=== PATIENT | female | born 1950 | race Caucasian/White ===

== ENCOUNTER 2016-08-05 13:06 | Emergency (ER) | payer MEDICARE ==
[~2016-08-05] VITALS: Ht 172.7 cm; Wt 74.0 kg
[~2016-08-05 13:06] MED LIST: ALBU8.5H3 INH; BENZ200C40 PO; COD1CAPS2 PO; ENAL5TAB; ENAL5TAB PO; FLUT9.9S IH; GARL1CAP3 PO; IBUP200C; LEVO500T33 PO; MECL12.5 PO; OMEP-110 PO; PRED10TA14 PO; PSEU120T9 PO; SYMBICORT; TIOT18CA INH; TOLT1TAB14; TOLT4CAP PO
[2016-08-05] MEDS ORDERED: SODIUM CHLORIDE 0.9% 1,000 ML IV ONE (13:15)
[2016-08-05] MEDS ORDERED: PLEASE ENTER HEIGHT AND WEIGHT MC SCH (13:30)
[2016-08-05] MEDS ORDERED: SODIUM CHLORIDE 0.9% 1,000ML IVBOLUS ONE (13:30)
[2016-08-05] MEDS ORDERED: MORPHINE SULFATE 4 MG/ML, 1ML IVPush PRN (13:30)
[2016-08-05] MEDS ORDERED: ONDANSETRON 2MG/ML, 2ML IVPush ONE (13:30)
[2016-08-05 13:59] LABS: BLOOD UREA NITROGEN 11 mg/dL (7-18)
[2016-08-05 14:03] LABS: IS PT STATUS REG ER OR PRE ER? YES
[2016-08-05 14:51] VITALS: BP 151/76
== END 2016-08-05 15:01 | disposition home or self-care (01) ==
LOC: ED 14:55
DX: R07.2 Precordial pain (principal); I10 Essential (primary) hypertension; Z88.0 Allergy status to penicillin; Z88.2 Allergy status to sulfonamides; Z88.8 Allergy status to other drugs, medicaments and biological substances
CPT/HCPCS: 36415; 70450; 71010; 80048; 82040; 84484; 85025; 93005

== ENCOUNTER 2016-09-14 12:16 | Emergency (ER) | payer MEDICARE ==
[~2016-09-14] VITALS: Ht 170.2 cm; Wt 74.0 kg
[2016-09-14] MEDS ORDERED: SODIUM CHLORIDE FLUSH 10ML SYR IVF ONE (12:30)
[2016-09-14] MEDS ORDERED: ALBUTEROL/IPRATROPIUM 2.5MG/0.5MG, 3 ML NPPB ONE (12:30)
[2016-09-14 12:55] LABS: HEMOGLOBIN 14.5 g/dL (11.7-16.4); WHITE BLOOD COUNT 9.6 x10^3/uL (3.4-10)
[2016-09-14 13:04] LABS: BLOOD UREA NITROGEN 9 mg/dL (7-18)
[2016-09-14] MEDS ORDERED: ALBUTEROL/IPRATROPIUM 2.5MG/0.5MG, 3 ML ONE (13:04)
[2016-09-14 13:09] VITALS: BP 199/82
== END 2016-09-14 14:57 | disposition home or self-care (01) ==
LOC: ED 13:36
DX: J20.9 Acute bronchitis, unspecified (principal); R09.1 Pleurisy; I10 Essential (primary) hypertension; Z88.0 Allergy status to penicillin; Z88.5 Allergy status to narcotic agent; Z91.040 Latex allergy status; Z86.718 Personal history of other venous thrombosis and embolism
CPT/HCPCS: 36415; 71010; 80048; 82040; 83605; 85025; 93005; 99285

== ENCOUNTER 2017-06-06 10:48 | Emergency (ER) | payer MEDICARE, MEDICAID ==
[~2017-06-06] VITALS: Ht 174 cm; Wt 71.0 kg
[~2017-06-06 10:48] MED LIST changes: -ALBU8.5H3 INH; +ALBU8.5H8 INH; -BENZ200C40 PO; +BENZ200C48 PO; -IBUP200C; +IBUP200C5; -LEVO500T33 PO; +LEVO500T47 PO
[2017-06-06] MEDS ORDERED: ENAL5TAB PO (11:01)
[2017-06-06] MEDS ORDERED: ASPI325T17 PO (11:01)
[2017-06-06] MEDS ORDERED: MECLIZINE CHEWABLE 25 MG TAB PO ONE (11:30)
[2017-06-06] MEDS ORDERED: SODIUM CHLORIDE FLUSH 10ML SYR IVF ONE (11:30)
[2017-06-06] MEDS ORDERED: MECLIZINE CHEWABLE 25 MG TAB ONE (11:51)
[2017-06-06 11:55] VITALS: BP 142/87
[2017-06-06 12:00] LABS: BASOPHILS # (AUTO) 0.02 x10^3/uL (0-0.1); BASOPHILS % (AUTO) 0 % (0-1); EOSINOPHILS # (AUTO) 0.27 x10^3/uL (0-0.4); EOSINOPHILS % (AUTO) 3 % (1-7); LYMPHOCYTES # (AUTO) 2.05 x10^3/uL (1-3.4); LYMPHOCYTES % (AUTO) 24 % (22-44); MD NO; MEAN CORPUSCULAR HEMOGLOBIN 30.8 pg (27.0-34.8); MEAN CORPUSCULAR HGB CONC 34.2 g/dL (32.4-35.8); MEAN CORPUSCULAR VOLUME 90.3 fL (80-100); MONOCYTES # (AUTO) 0.53 x10^3/uL (0.2-0.8); MONOCYTES % (AUTO) 6 % (2-9); NEUTROPHILS # (AUTO) 5.75 x10^3/uL (1.8-6.8); NEUTROPHILS % (AUTO) 67 % (42-75); PLATELET COUNT 304 x10^3/uL (130-400); RED BLOOD COUNT 4.89 x10^6/uL (3.82-5.3); RED CELL DISTRIBUTION WIDTH 12.9 % (9.6-15.2)
[2017-06-06 12:05] LABS: INTERNATIONAL NORMALIZED RATIO 0.96 (0.93-1.1)
[2017-06-06 12:36] LABS: ALBUMIN 3.6 g/dL (3.4-5.0); ANION GAP 13 mmol/L (5-15); CALCIUM 8.7 mg/dL (8.5-10.1); CHLORIDE 108 mmol/L (98-107)
[2017-06-06 12:41] LABS: ALANINE AMINOTRANSFERASE 22 U/L (12-78); ALKALINE PHOSPHATASE 73 U/L (45-117); BILIRUBIN,TOTAL 0.7 mg/dL (0.2-1.0); CREATININE 0.92 mg/dL (0.55-1.02); TOTAL PROTEIN 7.3 g/dL (6.4-8.2); TROPONIN I < 0.015 ng/mL (0.000-0.045)
== END 2017-06-06 13:55 | disposition home or self-care (01) ==
LOC: ED 13:49
DX: R42 Dizziness and giddiness (principal); F17.210 Nicotine dependence, cigarettes, uncomplicated; I10 Essential (primary) hypertension; Z86.73 Personal history of transient ischemic attack (TIA), and cerebral infarction without residual deficits; J44.9 Chronic obstructive pulmonary disease, unspecified; R79.1 Abnormal coagulation profile
CPT/HCPCS: 36415; 71045; 80053; 84484; 85025; 85610; 85730; 93005; 99285

== ENCOUNTER 2017-08-20 14:57 | Emergency (ER) | payer MEDICARE, MEDICAID ==
[~2017-08-20] VITALS: Ht 172.7 cm; Wt 70.0 kg
[~2017-08-20 14:57] MED LIST changes: +ASPI325T17 PO
[2017-08-20] MEDS ORDERED: LIDOCAINE 2%, 10ML INFIL ONE (15:30)
[2017-08-20] MEDS ORDERED: PLEASE ENTER HEIGHT AND WEIGHT MC SCH (15:30)
[2017-08-20] MEDS ORDERED: LIDOCAINE-MPF 2% ,5ML ONE (16:28)
[2017-08-20] MEDS ORDERED: ONDANSETRON ODT 4 MG ONE (16:46)
[2017-08-20 16:48] VITALS: BP 164/83
[2017-08-20] MEDS ORDERED: ONDANSETRON ODT 4 MG PO ONE (17:00)
[2017-08-20] MEDS ORDERED: BACITRACIN ZINC OINT 500U/GM, 0.9 GM ONE (17:11)
== END 2017-08-20 18:39 | disposition home or self-care (01) ==
LOC: ED 15:45
DX: S01.81XA Laceration without foreign body of other part of head, initial encounter (principal); J44.9 Chronic obstructive pulmonary disease, unspecified; I10 Essential (primary) hypertension; Z88.6 Allergy status to analgesic agent; Z88.0 Allergy status to penicillin; Z91.040 Latex allergy status; W01.0XXA Fall on same level from slipping, tripping and stumbling without subsequent striking against object, initial encounter; Y93.01 Activity, walking, marching and hiking; Y99.8 Other external cause status; Y92.009 Unspecified place in unspecified non-institutional (private) residence as the place of occurrence of the external cause
CPT/HCPCS: 12052; 70450; 72072; 72125; 73030; 99284; Q0162

== ENCOUNTER 2017-08-25 12:12 | Emergency (ER) | payer MEDICARE, MEDICAID ==
[~2017-08-25] VITALS: Ht 172.7 cm; Wt 75.6 kg
[2017-08-25 12:16] VITALS: BP 145/94
== END 2017-08-25 13:13 | disposition home or self-care (01) ==
LOC: ED 12:51
DX: S01.81XD Laceration without foreign body of other part of head, subsequent encounter (principal); I10 Essential (primary) hypertension; J44.9 Chronic obstructive pulmonary disease, unspecified; Z86.718 Personal history of other venous thrombosis and embolism; X58.XXXD Exposure to other specified factors, subsequent encounter
CPT/HCPCS: 99282

== ENCOUNTER 2018-01-31 15:10 | Emergency (ER) | payer MEDICARE, MEDICAID ==
[~2018-01-31] VITALS: Ht 172.7 cm; Wt 75.0 kg
[~2018-01-31 15:10] MED LIST changes: +IBUP-1623; -IBUP200C5
[2018-01-31 15:15] VITALS: BP 159/99
== END 2018-01-31 16:28 ==
LOC: ED 16:14
DX: F41.1 Generalized anxiety disorder (principal); J44.9 Chronic obstructive pulmonary disease, unspecified; I10 Essential (primary) hypertension; Z86.718 Personal history of other venous thrombosis and embolism
CPT/HCPCS: 99284

== ENCOUNTER 2019-03-11 13:26 | Emergency (ER) | payer MEDICARE, MEDICAID ==
[~2019-03-11] VITALS: Ht 172.7 cm; Wt 72.0 kg
[~2019-03-11 13:26] MED LIST changes: -COD1CAPS2 PO; +COD1CAPS6 PO
[2019-03-11] MEDS ORDERED: SODIUM CHLORIDE FLUSH 10ML SYR IVF ONE (14:00)
[2019-03-11 14:10] LABS: BASOPHILS # (AUTO) 0.23 x10^3/uL (0-0.1); BASOPHILS % (AUTO) 2 % (0-1); EOSINOPHILS # (AUTO) 0.48 x10^3/uL (0-0.4); EOSINOPHILS % (AUTO) 4 % (1-7); LYMPHOCYTES # (AUTO) 2.81 x10^3/uL (1-3.4); LYMPHOCYTES % (AUTO) 23 % (22-44); MD NO; MEAN CORPUSCULAR HEMOGLOBIN 30.8 pg (27.0-34.8); MEAN CORPUSCULAR HGB CONC 33.5 g/dL (32.4-35.8); MEAN CORPUSCULAR VOLUME 91.9 fL (80-100); MONOCYTES # (AUTO) 0.75 x10^3/uL (0.2-0.8); MONOCYTES % (AUTO) 6 % (2-9); NEUTROPHILS # (AUTO) 7.72 x10^3/uL (1.8-6.8); NEUTROPHILS % (AUTO) 64 % (42-75); PLATELET COUNT 273 x10^3/uL (130-400); RED BLOOD COUNT 5.26 x10^6/uL (3.82-5.3); RED CELL DISTRIBUTION WIDTH 12.9 % (9.6-15.2)
[2019-03-11 14:12] LABS: INTERNATIONAL NORMALIZED RATIO 0.93 (0.93-1.1)
[2019-03-11 14:13] LABS: ALBUMIN 3.8 g/dL (3.4-5.0); ANION GAP 9 mmol/L (5-15); CHLORIDE 110 mmol/L (98-107); CREATININE 0.92 mg/dL (0.55-1.02)
[2019-03-11 14:16] LABS: PROTHROMBIN TIME 9.9 Seconds (9.6-11.5); TROPONIN I < 0.015 ng/mL (0.000-0.045)
[2019-03-11 14:20] VITALS: BP 169/105
--- NOTE | 2019-03-11 14:20 | NUR ---
BREAK RN: PT RESTING IN ROOM. REGULAR RESP. NO ACUTE DISTRESS NOTED. CALL LIGHT IN PLACE. WILL CONTINUE TO MONITOR WHILE PRIMARY RN IS ON BREAK.
--- NOTE | 2019-03-11 15:30 | NUR ---
AMBULATED TO BATHROOM WITHOUT ASSISTANCE, STEADY GAIT. NO CP AT THIS TIME
== END 2019-03-11 15:54 | disposition home or self-care (01) ==
LOC: ED 15:35
DX: R07.89 Other chest pain (principal); I73.9 Peripheral vascular disease, unspecified; I10 Essential (primary) hypertension; D68.9 Coagulation defect, unspecified; J44.9 Chronic obstructive pulmonary disease, unspecified; R01.1 Cardiac murmur, unspecified; F17.200 Nicotine dependence, unspecified, uncomplicated; Z86.718 Personal history of other venous thrombosis and embolism; Z79.82 Long term (current) use of aspirin
CPT/HCPCS: 36415; 71045; 80048; 82040; 83880; 84484; 85025; 85610; 85730; 93005; 99284

== ENCOUNTER 2019-05-19 18:16 | Emergency (ER) | payer MEDICARE, MEDICAID ==
[~2019-05-19] VITALS: Ht 172.7 cm; Wt 75.0 kg
--- NOTE | 2019-05-19 18:28 | NUR ---
PT WAS BIB [facility] FOR SOB. PT WAS 85% RM AIR WHEN EMS ARRIVED ON [facility]. AFTER PLACING PT ON 2 LITERS VIA NC SHE ALLYSON TO 95%. PT SAYS SHE HAS BEEN "FIGHTING A COUGH FOR 2 MONTHS. IWAS DX WITH A SINUS INFECTION A MONTH AGO AND WAS GIVEN ABX AND STEROIDS." PT IS 94% ON 2 LITERS. EKG COMPLETE.
[2019-05-19] MEDS ORDERED: ALBUTEROL SULFATE 2.5 MG/3 ML NPPB ONE (19:00)
[2019-05-19] MEDS ORDERED: ALBUTEROL/IPRATROPIUM 2.5MG/0.5MG, 3 ML ONE (19:05)
[2019-05-19 19:15] LABS: MEAN CORPUSCULAR HEMOGLOBIN 30.5 pg (27.0-34.8); MEAN CORPUSCULAR HGB CONC 34.2 g/dL (32.4-35.8); MEAN CORPUSCULAR VOLUME 89.3 fL (80-100); MEAN PLATELET VOLUME 8.7 fL (7.4-10.4); PLATELET COUNT 273 x10^3/uL (130-400); RED BLOOD COUNT 4.63 x10^6/uL (3.82-5.3); RED CELL DISTRIBUTION WIDTH 13.2 % (9.6-15.2)
[2019-05-19 19:17] VITALS: BP 138/82
--- NOTE | 2019-05-19 19:17 | NUR ---
PT RECEIVING BREATHING TREATMENT. TOLERATING WELL
[2019-05-19 19:23] LABS: ALANINE AMINOTRANSFERASE 40 U/L (12-78); ALBUMIN 3.3 g/dL (3.4-5.0); ANION GAP 7 mmol/L (5-15); CALCIUM 8.5 mg/dL (8.5-10.1); CHLORIDE 109 mmol/L (98-107); CREATININE 0.88 mg/dL (0.55-1.02)
[2019-05-19 19:27] LABS: ALKALINE PHOSPHATASE 110 U/L (45-117); MD YES; TOTAL PROTEIN 7.4 g/dL (6.4-8.2); TROPONIN I < 0.015 ng/mL (0.000-0.045)
[2019-05-19 19:37] LABS: <RBC MORPHOLOGY> NORMAL; BAND#(MANUAL) 0.19 x10^3/uL; BANDS%(MANUAL) 1 % (0-7); EOS#(MANUAL) 0.19 x10^3/uL (0.0-0.4); EOS% (MANUAL) 1 % (1-7); LYMPH#(MANUAL) 2.52 x10^3/uL (1-3.4); LYMPHS% (MANUAL) 13 % (22-44); MONOS#(MANUAL) 0.78 x10^3/uL (0.3-2.7); MONOS% (MANUAL) 4 % (2-9); SEG#(MANUAL) 15.71 x10^3/uL (1.8-6.8); SEGS% (MANUAL) 81 % (42-75)
[2019-05-19 19:38] LABS: <PLATELET ESTIMATE> ADEQUATE; <PLT MORPHOLOGY> NORMAL PLT MORPH
--- NOTE | 2019-05-19 20:14 | NUR ---
PROVIDER WANTS TO ADMIT PT. HOWEVER, PT DOES NOT WANT TO BE ADMITTED TO HOSPITAL. PT WILL LEAVE AMA. PT 85% ON ROOM AIR
== END 2019-05-19 20:51 | disposition left against medical advice (07) ==
LOC: ED 18:49
DX: J96.01 Acute respiratory failure with hypoxia (principal); R65.11 Systemic inflammatory response syndrome (SIRS) of non-infectious origin with acute organ dysfunction; J44.1 Chronic obstructive pulmonary disease with (acute) exacerbation; D72.829 Elevated white blood cell count, unspecified; I10 Essential (primary) hypertension; R00.0 Tachycardia, unspecified; R94.31 Abnormal electrocardiogram [ECG] [EKG]; Z86.718 Personal history of other venous thrombosis and embolism
CPT/HCPCS: 36415; 71045; 80053; 83605; 83880; 84145; 84484; 85025; 87040; 93005; 99291; J7512; J7613

== ENCOUNTER → 2019-11-13 | Outpatient (CLI) | payer MEDICARE, MEDICAID ==
[~2019-11-13] MED LIST changes: -ENAL5TAB; -ENAL5TAB PO; +ENAL5TAB10; +ENAL5TAB10 PO
== END | disposition home or self-care (01) ==
LOC: CFH 10:02
PROVIDERS: ATTEND Internal Medicine
DX: Z12.2 Encounter for screening for malignant neoplasm of respiratory organs (principal); Z12.31 Encounter for screening mammogram for malignant neoplasm of breast; Z13.820 Encounter for screening for osteoporosis; I73.9 Peripheral vascular disease, unspecified; R26.89 Other abnormalities of gait and mobility; H53.8 Other visual disturbances; N95.9 Unspecified menopausal and perimenopausal disorder; I35.0 Nonrheumatic aortic (valve) stenosis; M85.80 Other specified disorders of bone density and structure, unspecified site; J32.8 Other chronic sinusitis; I65.23 Occlusion and stenosis of bilateral carotid arteries; Z87.891 Personal history of nicotine dependence
CPT/HCPCS: 70450; 77063; 77067; 77080; 93880; G0297

== ENCOUNTER 2020-06-10 12:58 | Emergency (ER) | payer MEDICARE, MEDICAID ==
[~2020-06-10] VITALS: Ht 170.2 cm; Wt 70.0 kg
[~2020-06-10 12:58] MED LIST changes: +AMLO-211 PO; +ATOR40TA78 PO; +ENAL20TA9 PO; +OXYBUTYNIN
--- NOTE | 2020-06-10 13:15 | NUR ---
Bib by ariana from home for chest pain/ROOM SPINNING DIZZINESS ANS ABD PAIN SINCE ARGUMENT WITH MACHINE DEICER ELEMENT WINDER THIS AM AMS ADMINISTERED 324 OF ASA, EMS 12 LEAD UNREMARKABLE ON ARRIVAL APPEARS WELL, ECG OBTAINED HOWEVER, HYPERTENSIVE AT 199/88
[2020-06-10] MEDS ORDERED: MAALOX/HYOSCYAMINE/LIDOCAINE 45 ML BTL ONE (13:16)
[2020-06-10] MEDS ORDERED: FAMOTIDINE 20 MG TABLET ONE (13:16)
--- NOTE | 2020-06-10 13:20 | NUR ---
MEDICATED PER EMAR FOR GASTRITIS. PER ERP TO HOLD NITRO UNLESS ABD PAIN MEDS INEFFECTIVE
[2020-06-10] MEDS ORDERED: FAMOTIDINE 20 MG TABLET PO ONE (13:30)
[2020-06-10] MEDS ORDERED: NITROGLYCERIN SINGLE TAB 0.4 MG SL PRN (13:30)
[2020-06-10] MEDS ORDERED: MAALOX/HYOSCYAMINE/LIDOCAINE 45 ML BTL PO ONE (13:30)
--- NOTE | 2020-06-10 13:50 | NUR ---
MEDICATIONS REQUESTED FROM PHARMACY (TREATMENT OF SUSTAINED HYPERTENSION WITHOUT SXS)
[2020-06-10 13:54] LABS: BASOPHILS % (AUTO) 2 % (0-1); EOSINOPHILS % (AUTO) 5 % (1-7); LYMPHOCYTES % (AUTO) 30 % (22-44); MEAN CORPUSCULAR HEMOGLOBIN 30.5 pg (27.0-34.8); MEAN CORPUSCULAR HGB CONC 34.4 g/dL (32.4-35.8); MEAN PLATELET VOLUME 8.7 fL (7.4-10.4); MONOCYTES % (AUTO) 6 % (2-9); NEUTROPHILS % (AUTO) 58 % (42-75); PLATELET COUNT 297 x10^3/uL (130-400); RED BLOOD COUNT 4.78 x10^6/uL (3.82-5.3); RED CELL DISTRIBUTION WIDTH 12.9 % (9.6-15.2)
[2020-06-10 13:55] LABS: MD NO
[2020-06-10] MEDS ORDERED: ENALAPRIL 20MG TABLET PO ONE (14:00)
[2020-06-10 14:07] LABS: ALANINE AMINOTRANSFERASE 17 U/L (12-78); ALBUMIN 3.6 g/dL (3.4-5.0); ANION GAP 7 mmol/L (5-15); CALCIUM 8.6 mg/dL (8.5-10.1); CHLORIDE 107 mmol/L (98-107); CREATININE 1.15 mg/dL (0.55-1.02)
[2020-06-10 14:11] LABS: ALKALINE PHOSPHATASE 73 U/L (45-117); BILIRUBIN,TOTAL 0.4 mg/dL (0.2-1.0); TOTAL PROTEIN 7.1 g/dL (6.4-8.2); TROPONIN I < 0.015 ng/mL (0.000-0.045)
[2020-06-10 14:55] VITALS: BP 175/100
== END 2020-06-10 15:32 | disposition home or self-care (01) ==
LOC: ED 13:23
DX: R07.89 Other chest pain (principal); R94.31 Abnormal electrocardiogram [ECG] [EKG]; I10 Essential (primary) hypertension; J44.9 Chronic obstructive pulmonary disease, unspecified; Z86.73 Personal history of transient ischemic attack (TIA), and cerebral infarction without residual deficits
CPT/HCPCS: 36415; 71045; 80053; 83690; 84484; 85025; 93005; 99285

== ENCOUNTER 2020-07-24 11:33 | Emergency (ER) | payer MEDICARE, MEDICAID ==
[~2020-07-24] VITALS: Ht 172.7 cm; Wt 66.1 kg
[2020-07-24 11:49] VITALS: BP 152/87
[2020-07-24] MEDS ORDERED: CLOPIDOGREL 75 MG TABLET PO ONE (13:00)
[2020-07-24] MEDS ORDERED: CLOPIDOGREL 75 MG TABLET ONE (13:06)
== END 2020-07-24 13:57 | disposition home or self-care (01) ==
LOC: ED 12:22
DX: I63.9 Cerebral infarction, unspecified (principal); I10 Essential (primary) hypertension; J44.9 Chronic obstructive pulmonary disease, unspecified; F17.200 Nicotine dependence, unspecified, uncomplicated
CPT/HCPCS: 70450; 99284

== ENCOUNTER 2020-07-27 16:51 | Emergency (ER) | payer MEDICARE, MEDICAID ==
[~2020-07-27] VITALS: Ht 167.6 cm; Wt 70.0 kg
[2020-07-27 17:06] VITALS: BP 133/70
--- NOTE | 2020-07-27 17:06 | NUR ---
PT BIBA FROM THE BUS STOP TO BE REEVALUATED FOR STROKE SYMPTOMS. PT WAS SEEN HERE YESTERDAY FOR L-SIDED STROKE DEFICITS. PT HAS HX OF STROKE 1 MONTH AGO WITH R-SIDED DEFICITS.
[2020-07-27 17:58] LABS: BASOPHILS % (AUTO) 1 % (0-1); EOSINOPHILS % (AUTO) 2 % (1-7); LYMPHOCYTES % (AUTO) 19 % (22-44); MEAN CORPUSCULAR HEMOGLOBIN 30.8 pg (27.0-34.8); MEAN CORPUSCULAR HGB CONC 34.6 g/dL (32.4-35.8); MEAN PLATELET VOLUME 8.8 fL (7.4-10.4); MONOCYTES % (AUTO) 8 % (2-9); NEUTROPHILS % (AUTO) 70 % (42-75); PLATELET COUNT 303 x10^3/uL (130-400); RED BLOOD COUNT 4.66 x10^6/uL (3.82-5.3); RED CELL DISTRIBUTION WIDTH 13.4 % (9.6-15.2)
[2020-07-27 18:10] LABS: ALBUMIN 3.8 g/dL (3.4-5.0); ANION GAP 7 mmol/L (5-15); CALCIUM 8.7 mg/dL (8.5-10.1); CHLORIDE 108 mmol/L (98-107)
[2020-07-27 18:16] LABS: ALANINE AMINOTRANSFERASE 15 U/L (12-78); ALKALINE PHOSPHATASE 75 U/L (45-117); BILIRUBIN,TOTAL 0.7 mg/dL (0.2-1.0); CREATININE 1.39 mg/dL (0.55-1.02); TOTAL PROTEIN 7.6 g/dL (6.4-8.2); TROPONIN I < 0.015 ng/mL (0.000-0.045)
--- NOTE | 2020-07-27 18:40 | NUR ---
PT LEFT AMA, ERP AWARE. PT GIVEN DC INSTRUCTIONS.
== END 2020-07-27 18:42 | disposition left against medical advice (07) ==
LOC: ED 17:21
DX: G45.9 Transient cerebral ischemic attack, unspecified (principal); R42 Dizziness and giddiness; R20.2 Paresthesia of skin; R19.7 Diarrhea, unspecified; I10 Essential (primary) hypertension; J44.9 Chronic obstructive pulmonary disease, unspecified; F17.200 Nicotine dependence, unspecified, uncomplicated; Z86.718 Personal history of other venous thrombosis and embolism; W01.0XXA Fall on same level from slipping, tripping and stumbling without subsequent striking against object, initial encounter; Y93.89 Activity, other specified; Y92.89 Other specified places as the place of occurrence of the external cause; Y99.8 Other external cause status
CPT/HCPCS: 36415; 80053; 84484; 85025; 99283